=== PATIENT | male | born 1960 | race Caucasian/White ===

== ENCOUNTER 2020-10-10 13:33 | Emergency (ER) | payer OTHER ==
[~2020-10-10] VITALS: Ht 172.7 cm; Wt 113.3 kg
[2020-10-10 13:51] VITALS: BP 204/109
[2020-10-10] MEDS ORDERED: AMOX875T PO (14:16)
[2020-10-10] MEDS ORDERED: NICO1PAT21 TP (14:17)
--- NOTE | 2020-10-10 14:17 | PHYS DOC ---
Past Medical History Past Medical History: Asthma, COPD, Diabetes-Type II, GERD, Hypertension, Other Additional Past Medical Histor: SLEEP APNEA,NEUROPATHY,CHRONIC LEG PAIN Past Surgical History: Appendectomy Smoking Status: Current Every Day Smoker Additional Information: 1 PPD Alcohol Use: None General Adult EDM: Chief Complaint: DENTAL PROBLEM HPI: HPI: Patient is a 60 year old male with history of diabetes type 2, hypertension, COPD, current smoker, who presents to the ED today complaining of left lower gum dental pain rated at 8 out of 10 described as throbbing intermittent since yesterday. Patient denies any fever or trismus. He states he has an appointm ent coming up with a dentist next Wednesday. Review of Systems: Review of Systems: Constitutional: Denies fever or chills. [] HENT: Reports left lower gum dental pain. Denies nasal congestion or sore throat. [] Musculoskeletal: Denies back pain or joint pain. [] Integument: Denies rash. [] Neurologic: Denies headache, focal weakness or sensory changes. [] Psychiatric: Denies depression or anxiety. [] Heart Score: C/O Chest Pain: N/A Risk Factors: Risk Factors: DM, Current or recent (<one month) smoker, HTN, HLP, family history of CAD, obesity. Risk Scores: Score 0 - 3: 2.5% MACE over next 6 weeks - Discharge Home Score 4 - 6: 20.3% MACE over next 6 weeks - Admit for Clinical Observation Score 7 - 10: 72.7% MACE over next 6 weeks - Early Invasive Strategies Allergies: Allergies: Allergies Coded Allergies Type Severity Reaction Last Updated Verified No Known Drug Allergies 10/10/20 No Physical Exam: PE: Constitutional: Well developed, well nourished, no acute distress, non-toxic appearance. [] HENT: Normocephalic, atraumatic, bilateral external ears normal, oropharynx moist, no oral exudates, nose normal. [] Very poor dentition noted throughout, dental caries noted. No abscess Skin: Warm, dry, no erythema, no rash. [] Back: No tenderness, no CVA tenderness. [] Extremities: No tenderness, no cyanosis, no clubbing, ROM intact, no edema. [] Neurologic: Alert and oriented X 3, normal motor function, normal sensory function, no focal deficits noted. [] Psychologic: Affect normal, judgement normal, mood normal. [] Current Patient Data: Vital Signs: Vital Signs Date Time Temp Pulse Resp B/P (MAP) Pulse Ox O2 Delivery O2 Flow Rate FiO2 10/10/20 13:51 98.2 104 21 204/109 (140) 97 Room Air 98.2 EKG: EKG: [] Radiology/Procedures: Radiology/Procedures: [] Course & Med Decision Making: Course & Med Decision Making Pertinent Labs and Imaging studies reviewed. (See chart for details) This is a 60-year-old male patient presenting to the ED today with dental infection, patient has very poor dentition. Discharged on amoxicillin. He is already on tramadol for neuropathy. He has an appointment with his dentist on Wednesday. Smoking cessation advised. Nicotine patches were discharged with him. Blood pressure 204/109, patient states he has not taken any of his blood pressure medicines this morning. He requested to be allowed to take his own medicine when he gets home. Emphasized to this patient importance of compliance with blood pressure management. Ana Maria Disclaimer: Ana Maria Disclaimer: This electronic medical record was generated, in whole or in part, using a voice recognition dictation system. Departure Departure Impression: Primary Impression: Dentalgia Additional Impressions: Infected dental caries High blood pressure Qualified Codes: I10 - Essential (primary) hypertension Disposition: HOME / SELF CARE / HOMELESS Condition: STABLE Referrals: NO PCP (PCP) follow up with your dentist next week Patient Instructions: Dental Caries Additional Instructions: You were evaluated in the emergency room for dental pain and infection. Take the prescribed antibiotics until completed. Please brush your teeth 3 times a day. Consider smoking cessation. Please ensure you are taking your blood pressure medicine as prescribed Scripts Nicotine (NICODERM CQ 21mg) 1 Each Patch.td24 1 PATCH TP DAILY, #28 PATCH 1 Refill Prov: KRIS BLANC PRICE CHANGER 10/10/20 Amoxicillin (AMOXICILLIN) 875 Mg Tablet 1 TAB PO BID, #20 TAB Prov: IVISMEMOKRIS Boyd PRICE CHANGER 10/10/20 KRIS BLANC PRICE CHANGER Oct 10, 2020 14:17
== END 2020-10-10 14:26 | disposition home or self-care (01) ==
LOC: ER 13:33
DX: K02.9 Dental caries, unspecified (principal); I10 Essential (primary) hypertension; J44.9 Chronic obstructive pulmonary disease, unspecified; E11.9 Type 2 diabetes mellitus without complications; K21.9 Gastro-esophageal reflux disease without esophagitis; F17.200 Nicotine dependence, unspecified, uncomplicated; G89.29 Other chronic pain
CPT/HCPCS: 99283

== ENCOUNTER → 2020-11-28 | Outpatient (CLI) | payer OTHER ==
[~2020-11-28] MED LIST: AMOX875T PO; NICO1PAT21 TP
--- NOTE | 2020-11-29 13:30 | RAD ---
MR LUMBAR SPINE WO [id number] Date: 11/28/2020 3:33 PM Indication: LUMBAR RADICULOPATHY Comparison: None. Technique: Multi-planar multi-weighted magnetic resonance imaging of the lumbar spine was performed w ithout intravenous contrast using the standard lumbar spine protocol. FINDINGS: The lumbar spine is normally aligned. No acute fracture. Mild multilevel degenerative disc desiccatio n and disc height loss. No marrow replacing process to suggest malignancy. The conus terminates at a normal level. No abnormal signal is seen within the visualized distal spina l cord. No clumping of intrathecal nerve roots. No soft tissue abnormality in the visualized abdomen or pelvis. T12-L1: No disc bulge. No facet arthropathy. No significant spinal stenosis or neural foraminal narro wing. L1-L2: No disc bulge. No facet arthropathy. No significant spinal stenosis or neural foraminal narrow ing. L2-L3: Disc bulge. Mild facet arthropathy. No significant spinal stenosis. Mild bilateral neural fora edmund narrowing. L3-L4: Disc bulge. Mild facet arthropathy. No significant spinal stenosis. Mild to moderate bilateral neural foraminal narrowing. L4-L5: Disc bulge. Mild to moderate facet arthropathy. Mild spinal stenosis and right lateral recess narrowing. Moderate bilateral neural foraminal narrowing. L5-S1: Disc bulge with right far lateral protrusion. Mild facet arthropathy. No significant spinal st enosis or neural foraminal narrowing. IMPRESSION: Moderate lumbar spondylosis, detailed level by level above. Electronically signed by: Sidney Valdes MD (11/29/2020 1:28 PM) [facility]
== END ==
LOC: MRI 11:15
PROVIDERS: ATTEND Family Medicine
DX: M47.27 Other spondylosis with radiculopathy, lumbosacral region (principal); M51.17 Intervertebral disc disorders with radiculopathy, lumbosacral region; M48.061 Spinal stenosis, lumbar region without neurogenic claudication
CPT/HCPCS: 72148

== ENCOUNTER → 2021-03-20 | Outpatient (CLI) | payer OTHER ==
--- NOTE | 2021-03-20 18:00 | KCIC ---
EXAM: MRI RIGHT SHOULDER WITHOUT CONTRAST INDICATION: Right shoulder pain and limited range of motion COMPARISON: Right shoulder radiograph 03/05/2021 TECHNIQUE: Multiplanar, multisequence imaging of the right shoulder without contrast. FINDINGS: The exam is limited by motion artifact. ROTATOR CUFF: Small, likely full-thickness tear of the anterior supraspinatus tendon (image 9-10, ser ies 11) superimposed on moderate supraspinatus tendinopathy. Infraspinatus, subscapularis, and teres minor tendons are intact. No rotator cuff muscle atrophy or edema. LABRUM: The labrum is intact. BICEPS TENDON: The biceps tendon is intact and located. ACROMIOCLAVICULAR JOINT: Moderate acromioclavicular degenerative joint disease. GLENOHUMERAL JOINT: No focal cartilage defects. Alignment is normal. Marrow signal is normal. There i s no acute fracture. OTHER: Small amount of fluid in the joint. There is mild subacromial-subdeltoid bursitis. IMPRESSION: 1. Small, likely full-thickness tear of the anterior supraspinatus tendon superimposed on tendinopath y. 2. Subacromial-subdeltoid bursitis. 3. Acromioclavicular degenerative joint disease. Electronically signed by: Alondra Osborn MD (03/20/2021 5:57 PM) [id number]
== END ==
LOC: KCIC MRI 13:38
PROVIDERS: ATTEND Orthopaedic Surgery
DX: M19.011 Primary osteoarthritis, right shoulder (principal); M75.51 Bursitis of right shoulder
CPT/HCPCS: 73221

== ENCOUNTER → 2021-04-03 | Outpatient (CLI) | payer OTHER ==
--- NOTE | 2021-04-03 08:33 | RAD ---
EXAM: Abdomen sonogram. HISTORY: Epigastric pain. TECHNIQUE: Sonographic imaging of the abdomen was performed. COMPARISON: None. FINDINGS: There is hepatomegaly and hepatic steatosis. No focal hepatic lesion is seen. The gallbladd er is unremarkable. The common bile duct is normal in caliber. The kidneys are unremarkable. The sple en is normal in size. The pancreas, aorta and inferior vena cava are predominantly obscured due to quentin wel gas. IMPRESSION: 1. Hepatomegaly and hepatic steatosis. 2. Predominantly obscured midline structures due to bowel gas. 3. No acute sonographic finding. Electronically signed by: Estelle Carter MD (04/03/2021 8:31 AM) [id number]
== END ==
LOC: US 11:17
PROVIDERS: ATTEND Family Medicine
DX: R16.0 Hepatomegaly, not elsewhere classified (principal); K76.0 Fatty (change of) liver, not elsewhere classified
CPT/HCPCS: 76700

== ENCOUNTER 2021-05-23 06:42 | Day surgery (SDC) | payer OTHER ==
[~2021-05-23] VITALS: Ht 172.7 cm; Wt 113.8 kg
[~2021-05-23 06:42] MED LIST changes: +HYDROmorphone 2 MG/ML INJ. IVP PRN; +IV RINGERS,LACTATED 1000ML 1,000 ML IV SCH; +MORPHINE SULFATE 2 MG/ML INJ. IVP PRN; +PROCHLORPERAZINE 10 MG/2 ML VIAL. IVP PRN; +fentaNYL PF VIAL 100 MCG/2 ML VIAL IVP PRN
[2021-05-23 07:10] VITALS: BP 145/68
[2021-05-23] MEDS ORDERED: OMEG1CAP50 PO (07:31)
[2021-05-23] MEDS ORDERED: BACL10TA PO (07:31)
[2021-05-23] MEDS ORDERED: GABA600T7 PO (07:31)
[2021-05-23] MEDS ORDERED: PRAM0.255 PO (07:31)
[2021-05-23] MEDS ORDERED: PANT20TA2 PO (07:31)
[2021-05-23] MEDS ORDERED: DULA0.75 SQ (07:31)
[2021-05-23] MEDS ORDERED: LISI20TA18 PO (07:31)
[2021-05-23] MEDS ORDERED: ROPIVacaine 0.5% PF 20 ML VIAL. ONE (07:34)
[2021-05-23] MEDS: INSULIN LISPRO 100 UNIT/ML 3ML VIAL for OP,RR ONLY. SQ PRN ×2 (07:34→11:06)
[2021-05-23] MEDS ORDERED: fentaNYL PF VIAL 100 MCG/2 ML VIAL ONE (07:34)
[2021-05-23] MEDS ORDERED: MIDAZOLAM HCL/PF 2 MG/2 ML VIAL. ONE (07:35)
[2021-05-23] MEDS ORDERED: EPINEPHrine VIAL 30 MG/30 ML VIAL ONE (08:14)
[2021-05-23] MEDS ORDERED: SEVOFLURANE 31 TO 60 MINUTES. IH ONE (08:16)
[2021-05-23] MEDS ORDERED: ONDANSETRON PF 4 MG/2 ML VIAL. ONE (08:16)
[2021-05-23] MEDS ORDERED: LIDOCAINE 2% PF 5 ML VIAL. ONE (08:16)
[2021-05-23] MEDS ORDERED: PROPOFOL 10 MG/ML (20ML) VIAL. IV ONE (08:16)
[2021-05-23] MEDS ORDERED: DEXAMETHASONE SOD PHOS 4 MG/ML VIAL ONE (08:16)
[2021-05-23] MEDS ORDERED: ROCURONIUM 50 MG/5 ML VIAL. ONE (08:43)
[2021-05-23] MEDS ORDERED: SUGAMMADEX SODIUM 200 MG/2 ML VIAL. IVP ONE ×2 (09:27→09:30)
--- NOTE | 2021-05-23 09:43 | PDOC4 ---
OPERATIVE NOTE Date: Date: May 23, 2021 Pre-Op Diagnosis: Impingement AC arthrosis rotator cuff tear partial right shoulder Post-Op Diagnosis: Same Procedure Performed: Right shoulder arthroscopy with subacromial decompression distal clavicle resection release CA ligament bursectomy Surgeon: Hemanth Anesthesia Type: General Blood Loss: 30 cc Specimans Obtained: None Findings: See dictation Complications: None ZAMZAM ABURTO Jr. DO May 23, 2021 09:43
[2021-05-23] MEDS ORDERED: HYDR-2761 PO (10:00)
--- NOTE | 2021-05-23 10:02 | DISCH ---
DISCHARGE INSTRUCTIONS Condition on Discharge Condition on Discharge: Stable Activity After Discharge Activity Instructions for Disc: Resume previous activity, Avoid exertion Driving Instructions after Dis: Do not drive today Wound Incision Care Wound/Incision Care: Ice to area for comfort Other wound/incision instructi: May change dressings postoperative day #3 with sterile Band-Aid Follow-Up Follow up with: 10 to 14 days ZAMZAM ABURTO Jr. DO May 23, 2021 10:02
[2021-05-23] MEDS ORDERED: MORPHINE SULFATE 2 MG/ML INJ. ONE (10:08)
[2021-05-23] MEDS ORDERED: MORPHINE SULFATE 2 MG/ML INJ. IVP PRN (10:15)
[2021-05-23] MEDS ORDERED: ESMOLOL 100 MG/10 ML VIAL. IVP ONE (10:16)
--- NOTE | 2021-05-23 10:56 | EKG ---
[facility] [address] [place] [address] Test Date: 2021-05-23 Test Time: 10:24:54 Pat Name: JOJO RICHTER Department: Room: Gender: M Goat Farmer: : 1960 Requested By: DAYNE RYAN Order Number: [id number] Reading MD: Mango Head MD Measurements Intervals [place] Rate: 120 P: 27 WA: 140 QRS: -12 QRSD: 86 T: 88 QT: 312 QTc: 446 Interpretive Statements SINUS TACHYCARDIA Electronically Signed On 05-26-2021 8:29:57 CATTLE DEHORNER by Mango Head MD
[2021-05-23] MEDS ORDERED: HYDROcodone/APAP 5/325MG 1 TAB TABLET PO ONE (11:00)
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
[2021-05-23] MEDS ORDERED: INSULIN LISPRO 100 UNIT/ML 3ML VIAL for OP,RR ONLY. SQ ONE ×2 (11:10)
--- NOTE | 2021-05-23 11:25 | OP ---
DATE OF SURGERY: 05/23/2021 PREOPERATIVE DIAGNOSES: Impingement, acromioclavicular arthrosis, partial rotator cuff tear, right shoulder. POSTOPERATIVE DIAGNOSES: Impingement, acromioclavicular arthrosis, partial rotator cuff tear, right shoulder. PROCEDURE: Right shoulder arthroscopy with subacromial decompression, distal clavicle resection with resection of 1 cm distal clavicle, bursectomy. SURGEON: Stuart Saxena Jr, DO [employer] SPECIALIST: Javi Bates. ANESTHESIA: General. COMPLICATIONS: None. ESTIMATED BLOOD LOSS: 30 mL. DESCRIPTION OF PROCEDURE: The patient was taken to the operative suite, given general anesthetic, placed in a beach chair position. Right shoulder was then prepped and draped in sterile fashion. Standard posterior portal was established. The glenohumeral joint was visualized. The glenoid surface and the humeral surface were noted to be completely intact at this point. He also had the biceps anchor completely intact as well as the biceps tendon looked wonderful. From the undersurface of the rotator cuff, there was complete attachment of the rotator cuff throughout. No abnormalities were noted at this point. There were no other significant abnormalities. No loose bodies within the inferior recess. Scope was then taken into the subacromial region. Extremely large osteophytes were noted to the anterior aspect of the shoulder. This was also noted at the AC joint, which had severe degenerative changes. Therefore, at this point, the lateral portal was established and a subacromial decompression was performed and release of the CA ligament and the anterior portal was redirected into the AC joint. Undersurface of the acromion and clavicle were removed as well as about a centimeter of the distal clavicle at this point. This decompressed the area. The rotator cuff appeared to be completely intact after bursectomy was completed. No lesions or abnormalities were noted. After the wounds were reapproximated, sterile dressing was applied. The patient was then taken from the operative bed to the postoperative bed, taken to the PACU in stable condition. GUY/MALIHA DR: Kevin TID: [id number]
[2021-05-23 11:30] VITALS: BP 128/82
== END 2021-05-23 12:52 | disposition home or self-care (01) ==
LOC: SURG 06:42
PROVIDERS: ATTEND Orthopaedic Surgery
DX: M19.011 Primary osteoarthritis, right shoulder (principal); M75.101 Unspecified rotator cuff tear or rupture of right shoulder, not specified as traumatic; I10 Essential (primary) hypertension; E78.00 Pure hypercholesterolemia, unspecified; J44.9 Chronic obstructive pulmonary disease, unspecified; G47.30 Sleep apnea, unspecified; E66.9 Obesity, unspecified; K21.9 Gastro-esophageal reflux disease without esophagitis; E11.9 Type 2 diabetes mellitus without complications; F17.210 Nicotine dependence, cigarettes, uncomplicated; F41.9 Anxiety disorder, unspecified; F32.9 Major depressive disorder, single episode, unspecified; Z79.899 Other long term (current) drug therapy; Z98.890 Other specified postprocedural states
CPT/HCPCS: 29824; 29826; 82962; 93005; 94660; A4565; A4930; J0171; J0690; J1100; J1815; J2250; J2270; J2405; J2704; J2795; J3010; J3490; A4222; A4452